=== PATIENT | male | born 1980 | race Caucasian/White ===

== ENCOUNTER 2019-02-13 13:05 | Emergency (ER) | payer MEDICAID ==
[~2019-02-13] VITALS: Ht 180.3 cm; Wt 104.3 kg
[2019-02-13 13:22] VITALS: BP 130/73
--- NOTE | 2019-02-13 13:58 | NUR ---
ED Nurse Note: Patient walked into ER due to swollen, red bump over the left chin area x 4 days; Reports no fever or chills. Patient seen by PCP and referred patient to go to ER for incision and drianage procedure. Patient already received antibiotic prescription from PCP.
--- NOTE | 2019-02-13 14:14 | NUR ---
ED Nurse Note: Informed consent obtained by Veronica Brennan P.A. for incision and drainage of chin abscess and filed in chart.
[2019-02-13] MEDS ORDERED: Lidocaine 2% 20mg/ml/EPI 0.01mg/ml 20ml INJ ONE (14:15)
--- NOTE | 2019-02-13 14:44 | Emergency Room Report ---
History of Present Illness General Chief Complaint: Skin Rash/Abscess Source: Patient Present Illness HPI 38 YO Male presents to the ED c/o 02/20 in severity pain, swelling, and erythema of left side of the chin x 4 days. Pt. states he was already rx'd Bactrim DS by PCP, but told to go to ED for I & D. Pt. reports symptoms have been progressive x 4 days. He denies fevers, chills, or swollen tender lymph nodes. Pt. denies trauma, fall or notable insect bite. Pt. denies taking blood thinning medications, and he denies hx of immune compromise. Pt. denies significant PMHx. Pt. denies hx of soft tissue abscesses in the past. He denies pain under the tongue, ST or changes in his voice. No other aggravating or relieving factors at this time. Allergies: Coded Allergies: No Known Allergies (Unverified , 02/13/19) Patient History Past Medical History: see triage record Past Surgical History: none Pertinent Family History: none Immunizations: UTD Reviewed Nursing Documentation: PMH: Agreed; PSxH: Agreed Nursing Documentation-PMH Past Medical History: No History, Except For History Of Psychiatric Problem: Yes - Depression, Anxiety Review of Systems All Other Systems: negative except mentioned in HPI Physical Exam Vital Signs Date Time Temp Pulse Resp B/P (MAP) Pulse Ox O2 Delivery O2 Flow Rate FiO2 02/13/19 13:22 98.1 16 130/73 99 Room Air 02/13/19 13:22 75 Sp02 EP Interpretation: reviewed, normal General Appearance: no apparent distress, alert, GCS 15, non-toxic Head: normocephalic, other - 3cm palpable fluctuant abscess on the left lower side of the chin, erythema noted, palpable induration as well. no blisters or vessicles. Eyes: bilateral eye normal inspection, bilateral eye PERRL ENT: hearing grossly normal, normal pharynx, no angioedema, normal voice, other - 3cm palpable fluctuant abscess on the left lower side of the chin, erythema noted, palpable induration as well. no blisters or vessicles. Neck: full range of motion Respiratory: lungs clear, normal breath sounds, speaking full sentences Cardiovascular #1: regular rate, rhythm Musculoskeletal: back normal, gait/station normal, normal range of motion, non- tender Neurologic: alert, oriented x3, responsive, motor strength/tone normal, sensory intact, speech normal, grossly normal Psychiatric: judgement/insight normal Skin: other - 3cm palpable fluctuant abscess on the left lower side of the chin, erythema noted, palpable induration as well. no blisters or vessicles. Lymphatic: no adenopathy Procedures Incision and Drainage Incision and Drainage : Consent: Verbal Site: Left side of the chin Blade Size: 11 I & D Procedure: betadine prep, sterile drapes applied, sterile dressing applied Wound Location: face - chin- left side Wound's Depth, Shape: superficial, linear Wound Length (cm): 1 Wound Explored: contaminated - purulent d/c expressed Irrigated w/ Saline (ccs): 30 Anesthesia: Lidocaine w/ Epi Volume Anesthetic (ccs): 2 Splint Applied?: No Sling Applied?: No Patient Tolerated: Well Complications: None Medical Decision Making PA Attestation Dr. Garcia is my supervising Physician whom patient management has been discussed with. Diagnostic Impression: Primary Impression: Abscess or cellulitis of chin ER Course 38 YO Male presents to the ED c/o 02/20 in severity pain, swelling, and erythema of left side of the chin x 4 days. Pt. states he was already rx'd Bactrim DS by PCP, but told to go to ED for I & D. Pt. reports symptoms have been progressive x 4 days. He denies fevers, chills, or swollen tender lymph nodes. Pt. denies trauma, fall or notable insect bite. Pt. denies taking blood thinning medications, and he denies hx of immune compromise. Pt. denies significant PMHx. Pt. denies hx of soft tissue abscesses in the past. He denies pain under the tongue, ST or changes in his voice. No other aggravating or relieving factors at this time. Ddx considered but are not limited to cellulitis, abscess, cystic acne, necrotizing fasciitis, insect bite just to name a few. Vital signs: are WNL, pt. is afebrile H&PE are most consistent with facial/chin abscess ORDERS: none required at this time, the diagnosis is clinical ED INTERVENTIONS: -I & D. - Neosporin and sterile dressing applied by RN --PT. to begin taking his previously rx'd abx ( Bactrim ) DISCHARGE: At this time pt. is stable for d/c to home. Will provide printed patient care instructions, and any necessary prescriptions. Care plan and follow up instructions have been discussed with the patient prior to discharge. Last Vital Signs Date Time Temp Pulse Resp B/P (MAP) Pulse Ox O2 Delivery O2 Flow Rate FiO2 02/13/19 13:22 98.1 75 16 130/73 (92) 99 Room Air Disposition: HOME, SELF-CARE Condition: Stable Scripts Mupirocin* (MUPIROCIN*) 22 Gm Oint...g. 1 APPLIC TOPIC THREE TIMES A DAY, #22 GM Prov: Veronica Dixon 02/13/19 Referrals: NON PHYSICIAN (PCP) Patient Instructions: Abscess Additional Instructions: Take medications as directed. Follow up with a Primary Care Provider or [facility] in 3-5 days, even if your symptoms have resolved. --Please review list of primary care clinics, if you do not already have a primary care provider Return sooner to ED if new symptoms occur, or current symptoms become worse. - Please note that this Emergency Department Report was dictated using [employer] program director technology software, occasionally this can lead to erroneous entry secondary to interpretation by the dictation equipment. Veronica Dixon Feb 13, 2019 14:44
[2019-02-13] MEDS ORDERED: MUPIROCIN22 GM TOPIC (14:45)
[2019-02-13] MEDS ORDERED: Neosporin Oint Ud Pkt TOPIC ONE (14:45)
--- NOTE | 2019-02-13 15:15 | NUR ---
ER DISCHARGE NOTE: Patient is cleared to be discharged per MATHEW HERNDON, pt is aox4, on room air, with stable vital signs. pt was given dc and prescription instructions, pt was able to verbalize understanding, pt id band removed without complications. pt is able to ambulate with steady gait. pt took all belongings.
[2019-02-13 15:16] VITALS: BP 130/73
== END 2019-02-13 15:15 | disposition home or self-care (01) ==
LOC: EMR 14:21
DX: L02.01 Cutaneous abscess of face (principal); F32.9 Major depressive disorder, single episode, unspecified; F41.9 Anxiety disorder, unspecified
CPT/HCPCS: 10060; Z7502; 99283